=== PATIENT | male | born 1990 | race Caucasian/White ===

== ENCOUNTER 2021-03-30 23:15 | Emergency (ER) | payer MEDICAID ==
[~2021-03-30] VITALS: Ht 170.2 cm; Wt 74.8 kg
[2021-03-30 23:25] VITALS: BP 128/85
--- NOTE | 2021-03-30 23:25 | NUR ---
EMILIE COTTO. TAKEN TO CHAIR C
--- NOTE | 2021-03-30 23:40 | NUR ---
PATIENT [facility]. PATIENT EXAMINED BY DR. JEFFERY. PATIENT MEDICALLY CLEARED AND RELEASED IN CUSTODY IN STABLE CONDITION. ORIGINAL PRE-BOOK FORM GIVEN TO OFFICER WILLIE, #[id number].
== END 2021-03-30 23:40 ==
LOC: MED 23:15
DX: F15.10 Other stimulant abuse, uncomplicated (principal); Z02.89 Encounter for other administrative examinations
CPT/HCPCS: 99283

== ENCOUNTER 2022-07-03 14:44 | Emergency (ER) | payer MEDICAID ==
[~2022-07-03] VITALS: Ht 165.1 cm; Wt 54.4 kg
[2022-07-03 14:47] VITALS: BP 131/82
--- NOTE | 2022-07-03 15:57 | NUR ---
PATIENT BIB [place] DEPT. PATIENT EXAMINED BY KARISSA LUNDBERG. PATIENT MEDICALLY CLEARED AND RELEASED IN CUSTODY IN STABLE CONDITION. ORIGINAL PRE-BOOK FORM GIVEN TO OFFICER MERCED #[id number].
== END 2022-07-03 15:57 | disposition home or self-care (01) ==
LOC: MED 14:44
DX: F15.10 Other stimulant abuse, uncomplicated (principal); R03.0 Elevated blood-pressure reading, without diagnosis of hypertension; F17.210 Nicotine dependence, cigarettes, uncomplicated; Z72.89 Other problems related to lifestyle
CPT/HCPCS: 99283

== ENCOUNTER 2022-09-22 19:37 | Emergency (ER) | payer MEDICAID ==
[~2022-09-22] VITALS: Ht 172.7 cm; Wt 63.5 kg
[2022-09-22 19:37] VITALS: BP 117/85
--- NOTE | 2022-09-22 19:37 | NUR ---
TO [facility] WITH MARLON COTTO
--- NOTE | 2022-09-22 20:04 | NUR ---
SEEN AND EXAMINED BY EVELIN
[2022-09-22 20:31] VITALS: BP 117/85
--- NOTE | 2022-09-22 20:31 | NUR ---
PATIENT BIB [place] [facility]ICE DEPT. PATIENT EXAMINED BY DR. CHOUDHURY. PATIENT MEDICALLY CLEARED AND RELEASED IN CUSTODY IN STABLE CONDITION. ORIGINAL PRE-BOOK FORM GIVEN TO OFFICER EUGENE #[id number]. Patient discharged with v/s stable. Written and verbal after care instructions given and explained. Patient verbalized understanding. Police with in custody. All questions addressed prior to discharge. Advised to follow up with PMD.
== END 2022-09-22 20:31 ==
LOC: MED 19:37
DX: S01.21XA Laceration without foreign body of nose, initial encounter (principal); X58.XXXA Exposure to other specified factors, initial encounter; Y93.89 Activity, other specified; Y92.89 Other specified places as the place of occurrence of the external cause; Y99.8 Other external cause status
CPT/HCPCS: 99283